=== PATIENT | female | born 1965 | race Caucasian/White ===

== ENCOUNTER 2017-02-13 10:41 | Outpatient (CLI) | payer OTHER ==
[~2017-02-13] VITALS: Ht 167.6 cm; Wt 64.5 kg
--- NOTE | ~2017-02-13 | HEMODYNAMI ---
PATIENT:ELLEN TONEY MEDICAL RECORD: [id number] : 61 LOCATION:DJESSE ADMISSION DATE: 02/13/17 Generatedon:02/13/201713:31 Patient name: ELLEN TONEY Patient #: [id number] SSN: DO B: 1965 Date of study: 02/13/2017 Page: Of Hemodynamic Procedure Report Patient Data Patient Demographics Procedure consent was obtained First Name: ELLEN Gender: Female Last Name: FENG : 1965 [facility] Initial: L Age: 51 year(s) Patient #: [id number] Race: Unknown Additional ID: [id number] Contact details [address]: [address] [place] [address] State: [place] City: [place] Zip code: [address] Past Medical History Allergies: No known allergies Admission Admission Data Admission Date: 02/13/2017 Admission Time: 10:41 Admit Source: Other Weight (lbs.): 145 Weight (kg.): 65.77 Lab Results Lab Result Date: 02/13/2017 Lab Result Time: 11:20 Biochemistry Name Units Result Min Max BUN mg/dl 7 --(*---)-- 7 18 Creatinine mg/dl 0.6 --(*---)-- 0.6 1.3 CBC Name Units Result Min Max Hematocrit % 45.1 --(-*--)-- 42 54 Hemoglobin g/dl 14.9 --(-*--)-- 13.5 17.5 Procedure Procedure Types Cath Procedure Diagnostic Procedure C [facility] w/Coronaries PCI Procedure Coronary Stent Coronary Stent Initial Miscellaneous Procedures Moderate Sedation up to 30 minutes Procedure Description Procedure Date Procedure Date: 02/13/2017 Procedure Start Time: 13:12 Procedure End Time: 13:30 Procedure Staff Name Function Irineo Gibson MD Performing Physician Trey Navarro RT Monitor Kathy Brunner RT Scrub Jonnathan Antony RN Nurse Procedure Data Cath Procedure Fluoroscopy Diagnostic fluoroscopy Total fluoroscopy Time: 6.3 time: 6.3 min min Diagnostic fluoroscopy Total fluoroscopy dose: 558 dose: 558 mGy mGy Contrast Material Contrast Material Type Amount (ml) Isovue 300 90 Entry Location Entry Primary Successful Side Size Upsize Upsize Entry Closure Oliveira ccessful Closure Location (Fr) 1 (Fr) 2 (Fr) Remarks Device Remarks Radial Right 6 Fr Mechanical artery Short Compression Estimated blood loss: 10 ml Diagnostic catheters Device Type Used For End Catheter Placement Diagnostic Terumo 5Fr Procedure [place] 110cm catheter Procedure Complications No complications Procedure Medications Medication Administration Route Dosage Oxygen NC 2 l/min Heparin Flush Bag added to field 2 bags (1000units/500ml NS) 0.9% NaCl I.V. 100 ml/hr Radial Cocktail added to field 1 syringe (Verapomil 2mg/Nitro 400mcg/Heparin 1500units) Radial Cocktail I.A. 1 syringe (Verapomil 2mg/Nitro 400mcg/Heparin 1500units) Fentanyl I.V. 50 mcg Versed I.V. 1 mg Heparin Bolus I.V. 4000 units Integrilin (Bolus I.V. 5.6 ml 2mg/ml) Integrilin (Bolus wasted 4.4 ml 2mg/ml) Plavix P.O. 600 mg Hemodynamics Rest Heart Rate: 89 (bpm) Pressure Samples Time Site Value (mmHg) Purpose Heart Use Rate(bpm) 13:20 LV 150/12,22 Snapshot 87 13:20 AO 136/87(105) Pullback 90 13:20 LV 139/11,18 Pullback 90 Gradients Valve Time Site 1 Site 2 Mean SEP/DFP Peak To Heart Use (mmHg) (sec/min) Peak Rate (mmHg) (bpm) Aortic 13:20 LV AO 8 15 3 90 139/11,18 136/87(105) Calculations Valve P-P Mean Valve Index Valve Source Name Gradient Area Flow (cm2) Aortic 3 8 3 8 Snapshots Pre Cath Intra NCS Post Cath Vital Signs Time Heart Resp SPO2 etCO2 NIBP Rhythm Pain Sedation Rate (ipm) (%) (mmHg) (mmHg) Status Level (bpm) 13:09:22 88 19 100 21 129/80(99) NSR 0 (11) 10(A) , No pain 13:13:29 87 18 99 14.2 118/73(95) NSR 0 (11) 10(A) , No pain 13:17:37 85 20 94 38.2 108/70(92) NSR 0 (11) 10(A) , No pain 13:21:39 88 18 97 23.2 113/74(87) NSR 0 (11) 10(A) , No pain 13:25:45 90 42 98 31.5 109/69(87) NSR 0 (11) 10(A) , No pain 13:29:50 88 89 99 30.7 109/66(86) NSR 0 (11) 10(A) , No pain Medications Time Medication Route Dose Verified Delivered Reason Note s Effectiveness by by 13:14:21 Oxygen NC 2 l/min Irineo De Santiago Per physician [facility] Dominic Antony RN, MD 13:14:31 Heparin Flush added 2 bags Irineo De Santiago used for Bag to [facility] Dominic Antony RN procedure (1000units/500ml field MILLS NS) 13:14:40 0.9% NaCl I.V. 100 Irineo De Santiago Per physician ml/hr [facility] Dominic Antony RN, MD 13:14:47 Radial Cocktail added 1 Irineo De Santiago used for (Verapomil to syringe [facility] Dominic Antony RN procedure 2mg/Nitro field MILLS 400mcg/Heparin 1500units) 13:14:51 Radial Cocktail I.A. 1 Irineo Cabello for (Verapomil syringe [facility] Dominic Gibson vasodilation 2mg/Anabel MILLS MD 400mcg/Heparin 1500units) 13:14:59 Fentanyl I.V. 50 mcg Irineo De Santiago for sedation [facility]. Dominic Antony RN, MD 13:15:07 Versed I.V. 1 mg Irineo De Santiago for sedation [facility]. Dominic Antony RN, MD 13:23:44 Heparin Bolus I.V. 4000 Irineo De Santiago for units [facility] Dominic Antony RN anticoagulation 13:23:59 Integrilin I.V. 5.6 ml Irineo De Santiago for (Bolus 2mg/ml) [facility] Dominic Antony RN anticoagulation 13:24:09 Integrilin wasted 4.4 ml Irineo De Santiago for (Bolus 2mg/ml) [facility] Dominic Antony RN anticoagulation 13:30:22 Plavix P.O. 600 mg Iirneo De Santiago for [facility]. Dominic Antony RN antiplatelet therapy Procedure Log Time Note 12:42:52 Informed consent obtained and on chart 12:42:56 Admit Source: Other 12:43:14 Diagnostic Cath status Elective 12:43:16 Kathy Kannan RT(R) sent for patient. Start room use. 12:43:17 Time tracking: Regular hours 12:43:20 Plan of Care:Hemodynamics will remain stable., Cardiac rhythm will remain stable., Comfort level will be maintained., Respiratory function will remain adequate., Patient/ family verbilizes understanding of procedure., Procedure tolerated without complication., Recovers from procedure without complications.. 12:43:54 Patient Weight : 145 lbs 12:44:04 H&P Date Dictated: 02/08/2017 Within 30 days and on chart., H&P Addendum completed by physician on day of procedure. (MUST COMPLETE FOR ALL OUTPATIENTS). 12:46:15 Patient received from Pre/Post Procedure Room to CCL 2 Alert and oriented. Tansferred to table in Supine position. 12:46:17 Warm blankets applied, and luma hugger turned on for patient comfort. 12:46:17 Correct patient and procedure confirmed by team. 12:46:21 ECG and BP/O2 sat monitors applied to patient. 12:46:22 Pre-procedure instructions explained to patient. 12:46:23 Pre-op teaching completed and patient verbalized understanding. 12:46:24 Family in waiting room. 12:46:26 Patient NPO since Midnight. 12:46:32 Patient allergic to No known allergies 12:59:00 Is the patient allergic to Iodine/contrast media? No. 12:59:03 Is patient on blood thinner?No 12:59:18 Patient diabetic? No. 13:00:37 Previous problem with sedation/anesthesia? No ? 13:00:38 Snore? No 13:00:39 Sleep apnea? No 13:00:40 Deviated septum? No 13:00:40 Opens mouth fully? Yes 13:00:41 Sticks out tongue? Yes 13:00:43 Airway obstruction? No ? 13:00:44 Dentures? No ? 13:00:48 Modified Casey's test Ulnar < 7 seconds 13:00:51 Patient pain scale 0/10 ?. 13:00:55 IV patent on arrival in left antecubital with 0.9% NaCl at [facility]. 13:04:39 Lab Result : BUN 7 mg/dl 13:04:39 Lab Result : Creatinine 0.6 mg/dl 13:04:40 Lab Result : Hemoglobin 14.9 g/dl 13:04:40 Lab Result : Hematocrit 45.1 % 13:04:42 Lab results completed and on chart. 13:04:44 Right Radial & Right Groin area was prepped with chlora-prep and draped in sterile fashion 13:04:45 Alarms reviewed by R. N. 13:04:46 Sharps counted by scrub and verified by R.N. 13:04:47 Use device set Radial Dx 13:04:48 MBrace Wrist Support opened to sterile field. 13:04:49 Acist Manifold opened to sterile field. 13:04:50 Acist Hand Control opened to sterile field. 13:04:51 Acist Syringe opened to sterile field. 13:04:52 Medline Cath Pack opened to sterile field. 13:04:52 Bag Decanter opened to sterile field. 13:04:53 Terumo 6Fr Slender Glidesheath opened to sterile field. 13:04:54 St Tien 260cm J .035 wire opened to sterile field. 13:04:54 Tegaderm 4 x 4 opened to sterile field. 13:05:03 Physician arrived 13:05:04 --------ALL STOP TIME OUT------ 13:05:05 Final Timeout: patient, procedure, and site verified with staff and physician. All members of the team are in agreement. 13:05:08 Right Radial & Right Groin site verified by team. 13:05:15 Physical assessment completed. ASA score P 2 - A patient with mild systemic disease as per Irineo Gibson MD. 13:05:19 Sedation plan: IV Moderate Sedation Medication:Versed, Fentanyl 13:08:23 Vital chart was started 13:08:24 Baseline sample Acquired. 13:08:27 Rhythm: sinus rhythm 13:11:53 Procedure started. 13:11:54 Full Disclosure recording started 13:12:01 Zero performed for pressure channel P1 13:12:07 Zero performed for pressure channel P1 13:12:18 Local anesthetic to right radial artery with Lidocaine 2% by Irineo Gibson MD.INITIAL ACCESS ONLY 13:12:24 A 6 Fr Short sheath was inserted into the Right Radial artery 13:13:29 A Diagnostic Terumo 5Fr [place] 110cm catheter was advanced over the wire and used for Procedure. 13:14:21 Oxygen 2 l/min NC was administered by Jonnathan Antony RN; Per physician; 13:14:31 Heparin Flush Bag (1000units/500ml NS) 2 bags added to field was administered by Jonnathan Antony RN; used for procedure; 13:14:40 0.9% NaCl 100 ml/hr I.V. was administered by Jonnathan Antony RN; Per physician; 13:14:47 Radial Cocktail (Verapomil 2mg/Nitro 400mcg/Heparin 1500units) 1 syringe added to field was administered by Jonnathan Antony RN; used for procedure; 13:14:51 Radial Cocktail (Verapomil 2mg/Nitro 400mcg/Heparin 1500units) 1 syringe I.A. was administered by Irineo Gibson MD; for vasodilation; 13:14:59 Fentanyl 50 mcg I.V. was administered by Jonnathan Antony RN; for sedation; 13:15:07 Versed 1 mg I.V. was administered by Jonnathan Antony RN; for sedation; 13:15:28 LCA angiography performed. 13:16:53 RCA angiography performed. 13:18:24 [place] Blaze Companyisper J 300cm 0.014 guide wire opened to sterile field. 13:18:25 inEarthixCompak Inflation Kit opened to sterile field. 13:18:49 Drimmitronic Launcher 6Fr EBU 3.5 guide catheter opened to sterile field. 13:19:00 Catheter removed. 13:20:12 6 Fr ebu 3.5 guide catheter was inserted over the wire 13:21:02 LV hemodynamics recorded. 13:23:44 Heparin Bolus 4000 units I.V. was administered by Jonnathan Antony RN; for anticoagulation; 13:23:59 Integrilin (Bolus 2mg/ml) 5.6 ml I.V. was administered by Jonnathan Antony RN; for anticoagulation; 13:24:09 Integrilin (Bolus 2mg/ml) 4.4 ml wasted was administered by Jonnathan Antony RN; for anticoagulation; 13:24:16 whisper wire advanced. 13:24:18 Wire advanced across lesion. 13:25:42 Inflation Number: 1 A [place] OTW 3.0 x 12 stent was prepped and advanced across the Mid LAD. The stent was deployed at 14 ISAAC for 0:45 (min:sec). 13:26:12 Stent catheter was removed intact over wire. 13:: Wire removed. 13::13 Guide catheter removed. 13::20 Terumo TR Band Standard opened to sterile field. 13:28:08 Sheath removed intact; hemostasis achieved with Mechanical Compression to the Right Radial artery. 13:28:10 Procedure ended.(Physican Out) 13::19 Fluoroscopy time 06.30 minutes. 13:: Fluoroscopy dose: 558 mGy 13:: Flurop Dose total: 558 13:: Contrast amount:Isovue 300 90ml. 13:: Sharps counted by scrub and verified by R.N. 13:29:32 TR band inflated with 10cc of air. 13:29:33 Insertion/operative site no bleeding no hematoma. 13:29:36 Post Procedure Pulses reassessed and unchanged 13::43 Post right radial artery:stable, soft, clean and dry 13:29:46 Post-procedure physical assessment completed. ASA score P 2 - A patient with mild systemic disease as per Irineo Gibson MD. 13:29:49 Post procedure rhythm: unchanged. 13:29:51 Estimated blood loss: 10 ml 13:29:52 Post procedure instruction explained to patient.Patient verbalizes understanding. 13:29:52 Patient needs reinforcement of post procedure teaching. 13:30:10 Procedure type changed to Cath procedure, Diagnostic procedure, LHC, LHC w/Coronaries, PCI procedure, Coronary Stent, Coronary Stent Initial, Miscellaneous Procedures, Moderate Sedation up to 30 minutes 13:30:22 Plavix 600 mg P.O. was administered by Jonnathan Antony RN; for antiplatelet therapy; 13:30:38 Procedure and supply charges have been captured, reviewed, submitted and are correct. 13:30:41 Procedure Complication : No complications 13::43 Vital chart was stopped 13::43 See physician's report for complete and final results. 13:30:45 Report given to Pre/Post Procedure Room. 13:30:47 Patient transfered to Pre/Post Procedure Room with Stretcher. 13:30:49 Procedure ended. 13:30:49 Full Disclosure recording stopped 13:31:10 End room use (Document Last) Intervention Summary Intervention Notes Time ActionType Lesion and Equipment Action# Pressure Duration Attributes Used 13:25:42 Place stent Mid LAD [place] OTW 1 14 00:45 3.0 x 12 stent Device Usage Item Name Manufacture Quantity Catalog Hospital Part Current Minimal Lot# / Number Charge Number Stock Stock Serial# Code Faustino Boucher 140-0250-00 [id number] 42176 369674 5 Wrist Vascular Support Dynamics Acist Acist 1 93379 644929 832688 193057 5 Manifold Medical Systems Inc Acist Hand Acist 1 21763 424142 177902 094256 5 Control Medical Systems Inc Acist Acist 1 71198 388064 507204 094015 20 Syringe Medical Systems Inc Medline Cardinal 1 [id number] 330591 08873 786535 5 Cath Pack Health Bag Microtek 1 2002S 9026626 11342 357689 5 Decanter Medical Inc. Terumo 6Fr Terumo 1 [id number] 326577 801687 811625 [address] Tien St Tien 1 604463 781114 364520 052829 30 260cm J .035 wire Tegaderm 4 3M 1 1626W 393571 199350 494985 5 x 4 Diagnostic Terumo 1 40-0461 427531 293007 842055 5 Terumo 5Fr [place] 110cm catheter [place] Coving[place] 1 [id number] 947918 546110 546474 5 Whisper J Vascular 300cm 0.014 guide wire Merit Merit 1 [id number] 268355 136335 687683 15 BasixCommdk Medical Inflation Kit Medtronic Medtronic 1 [id number] 358287 72344 066007 3 Launcher 6Fr EBU 3.5 guide catheter Elian OTW Medtronic 1 [id number] 687522 496658 757587 5 [id number] 3.0 x 12 stent Terumo TR Terumo 1 [id number] 297384 996613 400146 40 Band Standard Signature Audit Gibson Stage Time Signature Unsigned Intra-Procedure 02/13/2017 Trey Navarro 1:31:30 PM RT(R) Signatures Monitor : Trey Navarro RT Signature : Date : Time : [place] [address] [place] [address]
[2017-02-13] MEDS ORDERED: ZETIA10 MG PO (11:04)
[2017-02-13] MEDS ORDERED: NEURONTIN 300300 MG PO (11:04)
[2017-02-13] MEDS ORDERED: SYNTHROID25 MCG PO (11:05)
[2017-02-13] MEDS ORDERED: CYCLOBENZAPRINE10 MG PO (11:05)
[2017-02-13] MEDS ORDERED: CAPTOPRIL25 MG PO (11:05)
[2017-02-13] MEDS ORDERED: TENORMIN25 MG PO (11:05)
[2017-02-13] MEDS ORDERED: FISH OIL 1,0001 CA1 PO (11:06)
[2017-02-13] MEDS ORDERED: HYDROCODONE-APA1 TAB PO (11:06)
[2017-02-13] MEDS ORDERED: BAYER CHEWABLE81 MG PO (11:06)
[2017-02-13] MEDS ORDERED: CRESTOR20 MG PO (11:06)
[2017-02-13 11:15] VITALS: BP 144/78; Ht 167.6 cm; Wt 64.5 kg
[2017-02-13 11:27] LABS: BASOPHILS 0.3 % (0-2); EOSINOPHILS 1.4 % (0-7); HEMATOCRIT 45.1 % (36.0-48.0); HEMOGLOBIN 14.9 g/dL (12-16); IMMATURE GRANULOCYTES 0.1 % (0-5); LYMPHOCYTES 39.3 % (15-50); MCV 93.8 fL (80.0-100.0); MONOCYTES 7.1 % (2-11); NEUTROPHILS 51.8 % (40-80); PLATELET COUNT 152 10x3/uL (130-400); RBC 4.81 10x6/uL (4.00-5.40); RDW 13.2 % (11.5-14.5); WBC 7.2 10x3/uL (4.8-10.8)
[2017-02-13 11:39] LABS: CALC OSMOLALITY 271 mosm/kg (275-300); CALCIUM 8.7 mg/dL (8.5-10.1); CARBON DIOXIDE 25.6 mmol/L (21.0-32.0); CHLORIDE - SERUM 104 mmol/L (98-107); CREATININE - SERUM 0.6 mg/dL (0.6-1.3); GLUCOSE 93 mg/dL (74-106); SODIUM 137 mmol/L (136-145); UREA NITROGEN 7 mg/dL (7-18); eGFR NON AFRICAN AMERICAN > 90 mL/min (90-120)
[2017-02-13] MEDS ORDERED: PLAVIX75 MG PO (13:59)
--- NOTE | 2017-02-13 14:18 | NUR ---
1355 RESTING WITH EYES CLOSED. ALL VITALS WNL. NSR RATE 82 W NO C/O CHST PAIN. R WRIST TR BAND C/D/I WNO HEMATOMA OR BLEEDING. FAMILY AT SIDE.
--- NOTE | 2017-02-13 14:39 | NUR ---
1425 SITTING UP EATING TURKEY SANDWICH NO C/O NAUSEA. VITALS ALL WNL. R WRIST TR BAND C/D/I. FAMILY AT SIDE. DENIES NEEDS AT THIS TIME.
--- NOTE | 2017-02-13 17:15 | NUR ---
1545 RIGHT WRIST TR BAND C/D/I W NO HEMAOTMA OR BLEEDING. FAMILY AT SIDE. 1645 2CC AIR REMOVED FROM R WRIST TR BAND. WILL MONITOR CLOSELY FOR BLEEDING. ALL VITALS WNL. 1715 PIV REMOVED FROM LEFT AC WITH BANDAID APPLIED. 2CC AIR REMOVED FROM R WRIST TR. UP TO BATHROOM TO VOID.
--- NOTE | 2017-02-13 17:32 | NUR ---
TR BAND WEANED COMPLETELY. COTTON BALL AND TEGADERM APPLIED TO R WRIST. WRIST BRACE REAPPLIED. D/C INSTRUCTIONS DISCUSSED WITH PATIENT AND DAUGHTER AT BEDSIDE. WHEELED OUT VIA WHEELCHAIR BY CATH TEAM.
--- NOTE | 2017-02-14 13:50 | OP ---
PATIENT NAME: ELLEN TONEY MEDICAL RECORD: [id number] :61 LOCATION:D.CAT ADMISSION DATE: SURGEON: ROCK SERRANO MD DATE OF OPERATION: 02/13/2017 PROCEDURE: Left heart catheterization, selective coronary angiography, right radial approach. CATHETERS: [place] catheter. The procedure was well tolerated. We proceeded immediately to PTCA stenting of the LAD. FINDINGS: Left ventriculography in 30-degree PUCKETT view, not performed. Pressures across the aortic valve show an LV pressure of 137/12. There was no gradient. CORONARY ANATOMY: LEFT MAIN: Left main is free of disease. LAD: Distal to the previously placed stent shows a stenosis of about 80% correlating nicely with nuclear study. CIRCUMFLEX: Codominant system, free of disease. RIGHT CORONARY ARTERY: Free of disease. IMPRESSION: Progression of [place] disease distal to previously placed stent. PLAN: Intervention momentarily. DESCRIPTION OF PROCEDURE: Using indwelling sheath, an EBU 3.5 guiding catheter provided excellent guide catheter support followed by 300cm Whisper wire placed across the site occluded LAD down a portion of this vessel. Stent deployed was a 3.0 x 12 Darling drug-eluting stent up to 14 atmospheres for 45 seconds. Final angiography shows excellent resolution of 80% stenosis, no significant residual. ZENAIDA flow was 3 throughout the procedure. Integrilin and heparin were used throughout the case. Sheath was closed with TR band. TRANSINT:[id number] Voice Confirmation ID: [id number] DOCUMENT ID: [id number] ROCK SERRANO MD at 1350 CC: [id number] DICTATION DATE: 02/13/17 1332 VARNISH MELTER HELPER: 02/13/17 1419 DEP CLI 02/13/17 [place] [id number] [place] [id number]
== END 2017-02-13 17:34 | disposition home or self-care (01) ==
LOC: D.CATH 10:41
PROVIDERS: Internal Medicine Interventional Cardiology
DX: I25.119 Atherosclerotic heart disease of native coronary artery with unspecified angina pectoris (principal); Z01.812 Encounter for preprocedural laboratory examination

== ENCOUNTER → 2020-06-06 11:46 | Outpatient (CLI) | payer OTHER ==
[2017-02-13 11:15] VITALS: BMI 22.9
--- NOTE | ~2020-06-06 | EC ---
PATIENT:ELLEN TONEY DATE OF SERVICE: 06/06/20 SEX: F MEDICAL RECORD: [id number] DATE OF : 61 LOCATION:D.FORMERLY [facility] AGE OF PATIENT: 54 ADMISSION DATE: 06/06/20 REFERRING PHYSICIAN: INTERPRETING PHYSICIAN: ROCK SERRANO MD ECHOCARDIOGRAM REPORT ECHO CHARGES 4 ECHO COMPLETE Date: 06/06/20 CLINICAL DIAGNOSIS: ANGINA/HEART MURMUR ECHOCARDIOGRAPHIC MEASUREMENTS (adult normal given) AC root (d.<3.7cm) 3.6 cm LV Septum d (<1.2 cm> 1.2 cm Valve Excursion 1.4 cm LV Septum (systole) 1.4 cm Left Atria (s.<4.0cm> 3.5 cm LVPW d(<1.2cm) 1.2 cm RV (d.<2.3cm) 2.7 cm LVPW (sytole) 1.6 cm LV diastole(<5.6CM) 4.5 cm MV E-F(>70mm/sec) cm LV systole 2.3 cm LVOT Diameter 1.8 cm MV exc.(>10mm) 1.0 cm Est.ejection fraction (50-75%) % DOPPLER: LVIT cm/sec A 104.0cm/sec E 93.0 cm/sec LA cm/sec RVSP 20 mmHg LVOT 127 cm/sec AOP1/2T m/s Asc. 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 Gibson TAPE# PACS Pericardial Effusion N DATE OF SERVICE: Adequate 2D, color flow imaging, spectral Doppler, and M-Mode. FINDINGS: Borderline LVH. LV internal dimensions are normal. Wall motion is normal. EF is greater than or equal to 55%. Aortic valve is tricuspid. No evidence of stenosis by Doppler interrogation. Left atrium is normal. Mitral valve shows no prolapse. Trivial MR. Right side is grossly normal. Trivial TR. ECHOCARDIOGRAM REPORT [id number] ELLEN TONEY TRANSINT:[id number] Voice Confirmation ID: [id number] DOCUMENT ID: [id number] ROCK SERRANO MD CC: [id number] DICTATION DATE: 06/07/20809 BIG DATA PLATFORM ARCHITECT: 06/07/20 1157 DEP CLI 06/06/20 [place] [id number] [place] [id number]
[~2020-06-06 11:46] MED LIST: BAYER CHEWABLE81 MG PO; CAPTOPRIL25 MG PO; CRESTOR20 MG PO; CYCLOBENZAPRINE10 MG PO; FISH OIL 1,0001 CA1 PO; HYDROCODONE-APA1 TAB PO; NEURONTIN 300300 MG PO; PLAVIX75 MG PO; SYNTHROID25 MCG PO; TENORMIN25 MG PO; ZETIA10 MG PO
== END | disposition home or self-care (01) ==
LOC: D.HCCECHO 11:46
PROVIDERS: ATTEND Internal Medicine Interventional Cardiology
DX: I25.10 Atherosclerotic heart disease of native coronary artery without angina pectoris (principal)